=== PATIENT | female | born 1975 | race African-American/Black ===

== ENCOUNTER 2017-08-04 11:45 | Outpatient (CLI) | payer MEDICARE ==
[~2017-08-04] VITALS: Ht 172.7 cm; Wt 96.8 kg
--- NOTE | ~2017-08-04 | HEMODYNAMI ---
PATIENT:JUSTIN WATSON MEDICAL RECORD: [id number] : 75 LOCATION:[facility] ADMISSION DATE: 08/04/17 Generatedon:08/04/201716:26 Patient name: JUSTIN WATSON Patient #: [id number] SSN: : 1975 Date of study: 08/04/2017 Page: Of Hemodynamic Procedure Report Patient Data Patient Demographics Procedure consent was obtained First Name: JUSTIN Gender: Female Last Name: SHIRLEY : 1975 Middle Initial: LELO Age: 41 year(s) Patient #: [id number] Race: Black Additional ID: [id number] Contact details Address: [address] [place] [address] [address] State: [place] City: [place] Zip code: [address] Admission Admission Data Admission Date: 08/04/2017 Admission Time: 11:45 Weight (lbs.): 213 Weight (kg.): 96.62 Procedure Procedure Types Cath Procedure Peripheral Cath Diagnostic Procedure Cath Peripheral Fistula Mechanical Thrombectomy Procedure Description Procedure Date Procedure Date: 08/04/2017 Procedure Start Time: 14:30 Procedure Staff Name Function Michel Barker MD Performing Physician Cindi Marshall RT Monitor Presley Beaver RT Scrub Alexandra John RN Nurse Cindi Marshall RT Respiratory Therapist Procedure Data Cath Procedure Fluoroscopy Diagnostic fluoroscopy Total fluoroscopy Time: time: 29.5 min 29.5 min Diagnostic fluoroscopy Total fluoroscopy dose: 560 dose: 560 mGy mGy Contrast Material Contrast Material Type Amount (ml) Isovue 300 170 Procedure Medications Medication Administration Route Dosage Lidocaine 1% added to field 20 Oxygen NC 3 l/min Heparin Flush Bag added to field 2 bags (1000units/500ml NS) Fentanyl I.V. 50 mcg Versed I.V. 1 mg Fentanyl I.V. 50 mcg Versed I.V. 1 mg Heparin Bolus I.V. 5000 units Versed I.V. 1 mg Fentanyl I.V. 50 mcg Versed I.V. 1 mg Fentanyl I.V. 50 mcg Hemodynamics Rest Heart Rate: 83 (bpm) Snapshots Pre Cath Intra NCS Post Cath Vital Signs Time Heart Resp SPO2 etCO2 NIBP (mmHg) Rhythm Pain Sedation Rate (ipm) (%) (mmHg) Status Level (bpm) 14:08:37 102 20 99 4.5 135/98(113) NSR 0 (11) 10(A) , No pain 14:12:55 58 17 98 5.2 133/101(114) NSR 0 (11) 10(A) , No pain 14:17:12 89 14 100 10.5 127/95(113) NSR 0 (11) 10(A) , No pain 14:21:25 83 14 85 12 129/105(112) NSR 0 (11) 10(A) , No pain 14:25:37 66 15 93 12.8 123/102(114) NSR 0 (11) 10(A) , No pain 14:29:47 94 18 98 5.2 136/108(125) NSR 0 (11) 10(A) , No pain 14:34:44 68 19 98 9.8 137/103(118) NSR 0 (11) 10(A) , No pain 14:39:00 94 11 97 8.2 134/104(118) NSR 0 (11) 10(A) , No pain 14:43:16 84 10 96 9 134/98(117) NSR 0 (11) 10(A) , No pain 14:47:33 94 24 92 3 134/100(120) NSR 0 (11) 10(A) , No pain 14:51:48 95 10 92 9 134/99(114) NSR 0 (11) 10(A) , No pain 14:56:02 96 12 95 9.7 137/103(113) NSR 0 (11) 10(A) , No pain 15:00:18 92 13 97 9.7 137/102(125) NSR 0 (11) 10(A) , No pain 15:04:34 95 25 97 11.3 138/104(120) NSR 0 (11) 10(A) , No pain 15:08:50 91 14 98 15 126/99(112) NSR 0 (11) 10(A) , No pain 15:13:02 93 18 96 13.5 122/99(110) NSR 0 (11) 10(A) , No pain 15:17:12 94 34 95 13.5 134/107(120) NSR 0 (11) 10(A) , No pain 15:21:28 93 18 94 14.3 135/100(115) NSR 0 (11) 10(A) , No pain 15:25:44 90 14 93 16.5 134/99(116) NSR 0 (11) 10(A) , No pain 15:30:00 92 15 94 13.5 134/96(110) NSR 0 (11) 10(A) , No pain 15:34:17 92 7 95 15 139/104(121) NSR 0 (11) 10(A) , No pain 15:39:15 78 20 94 11.3 136/104(115) NSR 0 (11) 10(A) , No pain 15:43:31 92 23 92 11.3 134/102(113) NSR 0 (11) 10(A) , No pain 15:47:48 91 21 95 11.3 134/101(116) NSR 0 (11) 10(A) , No pain 15:52:03 93 23 95 15 142/107(119) NSR 0 (11) 10(A) , No pain 15:56:22 92 17 95 22.6 138/103(119) NSR 0 (11) 10(A) , No pain 16:01:21 84 26 96 1.5 Measuring NSR 0 (11) 10(A) , No pain 16:02:34 93 12 96 140/110(130) NSR 0 (11) 10(A) , No pain 16:07:29 94 20 92 0 142/106(124) NSR 0 (11) 10(A) , No pain 16:11:49 78 14 90 0 142/110(124) NSR 0 (11) 10(A) , No pain 16:16:07 94 17 96 137/106(119) NSR 0 (11) 10(A) , No pain 16:20:26 94 96 135/103(118) NSR 0 (11) 10(A) , No pain 16:25:25 93 11 92 Measuring NSR 0 (11) 10(A) , No pain Medications Time Medication Route Dose Verified Delivered Reason Notes Effe ctiveness by by 14:09:11 Lidocaine 1% added 20ml Alexandra Michel for local to vial Alvaro Barker MD anesthetic field RN 14:09:26 Oxygen NC 3 Alexandra Alexandra l/min Alvaro John RN RN 14:09:48 Heparin Flush added 2 Alexandra Michel used for Bag to bags Alvaro Barker MD procedure (1000units/500ml field RN NS) 14:31:37 Fentanyl I.V. 50 Michel Alexandra for mcg Alvaro Barker RN sedation 14:31:48 Versed I.V. 1 mg Michel Alexandra for Alvaro Barker RN sedation 14:40:10 Fentanyl I.V. 50 Michel Alexandra for mcg Alvaro Barker RN sedation 14:40:22 Versed I.V. 1 mg Michel Alexandra for Alvaro Barker RN sedation 14:50:08 Heparin Bolus I.V. 5000 Michel Alexandra units Alvaro Barker RN, MD 15:08:00 Versed I.V. 1 mg Michel Alexandra for Alvaro Barker RN sedation 15:08:08 Fentanyl I.V. 50 Michel Alexandra for mcg Alvaro Barker RN sedation 15:26:29 Versed I.V. 1 mg Michel Alexandra for Alvaro Barker RN sedation 15:26:37 Fentanyl I.V. 50 Michel Alexandra for mcg lAvaro Barker RN sedation Procedure Log Time Note 13:35:50 Patient Weight : 213 lbs 13:36:37 Use device set IR Diagnostic 13:36:39 Sterile Angiographic Pack opened to sterile field. 13:36:40 Bag Decanter (2002S) opened to sterile field. 13:37:03 DOC .035 wire (C80735) opened to sterile field. 13:37:04 Micropuncture VSI 4FR kit opened to sterile field. 13:37:05 St Waylon 6FR 5cm sheath opened to sterile field. 13:37:05 St Waylon 6FR 5cm sheath opened to sterile field. 13:37:21 INFLATOR BasixTOUCH (NO5725) opened to sterile field. 14:01:01 Time tracking: Regular hours 14:01:32 Plan of Care:Hemodynamics will remain stable., Cardiac rhythm will remain stable., Comfort level will be maintained., Respiratory function will remain adequate., Patient/ family verbilizes understanding of procedure., Procedure tolerated without complication., Recovers from procedure without complications.. 14:01:44 Patient received from Outpatients to IR Alert and oriented. Tansferred to table in Supine position. 14:01:48 Correct patient and procedure confirmed by team. 14:01:51 Signed procedure consent form obtained from patient. 14:02:07 H&P Date Dictated: 08/04/2017 Within 30 days and on chart.. 14:02:11 Family in waiting room. 14:02:15 Patient NPO since Midnight. 14:02:19 - 14:07:19 ECG and BP/O2 sat monitors applied to patient. 14:07:20 Vital chart was started 14:07:23 Baseline sample Acquired. 14:07:24 Full Disclosure recording started 14:07:25 - 14:07:30 Pre-procedure instructions explained to patient. 14:07:31 Pre-op teaching completed and patient verbalized understanding. 14:07:36 Is the patient allergic to Iodine/contrast media? No. 14:07:39 Is patient on blood thinner?Yes 14:07:41 Patient diabetic? Yes. 14:07:46 If diabetic: On Metformin? No 14:07:48 - 14:07:50 ----Pre-sedation anethsthesia assessment.---- 14:07:54 Previous problem with sedation/anesthesia? No ? 14:07:57 Snore? Yes 14:07:59 Sleep apnea? No 14:08:06 Deviated septum? No 14:08:11 Opens mouth fully? Yes 14:08:16 Sticks out tongue? Yes 14:08:20 Airway obstruction? No ? 14:08:27 Dentures? Yes out 14:08:41 IV patent on arrival in left forearm with 0.9% NaCl at [facility]. 14:08:48 Right Arm area was prepped with chlora-prep and draped in sterile fashion 14:: Lidocaine 1% 20ml vial added to field was administered by Michel Barker MD; for local anesthetic; 14:: Oxygen 3 l/min NC was administered by Alexandra John RN; ; ::48 Heparin Flush Bag (1000units/500ml NS) 2 bags added to field was administered by Michel Barker MD; used for procedure; 14::52 - 14::16 Physician arrived 14:28: --------ALL STOP TIME OUT------ 14:28:11 Final Timeout: patient, procedure, and site verified with staff and physician. All members of the team are in agreement. 14::16 Sedation plan: IV Moderate Sedation Medication:Versed, Fentanyl 14:28:22 Procedure started. 14:30:11 Local anesthetic to right arm with Lidocaine 1% by Michel Barker MD.INITIAL ACCESS ONLY 14:30:13 Venous access obtained using ultrasound guidance. ::37 Fentanyl 50 mcg I.V. was administered by Alexandra John RN; for sedation ; :48 Versed 1 mg I.V. was administered by Alexandra John RN; for sedation; 14:37:07 TORQUE DEVICE PLASTIC .038 ( TD01) opened to sterile field. 14:37:07 GLIDE WIRE ANGLE 180cm (FR3562) opened to sterile field. 14:37:08 Micropuncture VSI 4FR kit opened to sterile field. 14:37:09 GLIDE CATHETER 5FR ANGLED 65cm (CG507) opened to sterile field. 14:40:10 Fentanyl 50 mcg I.V. was administered by Alexandra John RN; for sedation ; 14:40:22 Versed 1 mg I.V. was administered by Alexandra John RN; for sedation; 14:43:34 ROADRUNNER .035 145 glide wire (M94105) opened to sterile field. 14:47:57 PRITCHARD 260 wire (C46347) opened to sterile field. 14:50:08 Heparin Bolus 5000 units I.V. was administered by Alexandra John RN; ; 14:50:42 Inflation number: 1 A POWERFLEX PRO 4.0 X 100 X 135 balloon ([id number]) was prepped and advanced across the Undefined lesion 1 on undefined graft 1, then inflated 14:53:30 Inflation number: 1 A POWERFLEX PRO 6.0 x 100 x 135cm balloon ([id number] ) was prepped and advanced across the Undefined1, then inflated 14:59:53 Inflation number: 2 A POWERFLEX PRO 8.0 x 40 x 80cm balloon ([id number]) was prepped and advanced across the Undefined1, then inflated . 15:08:00 Versed 1 mg I.V. was administered by Alexandra John RN; for sedation; 15:08:08 Fentanyl 50 mcg I.V. was administered by Alexandra John RN; for sedation ; 15:10:07 Inflation number: 3 A POWERFLEX PRO 10.0 x 40 x 80cm balloon ([id number]) was prepped and advanced across the Undefined1, then inflated . 15:26:29 Versed 1 mg I.V. was administered by Alexandra John RN; for sedation; 15:26:37 Fentanyl 50 mcg I.V. was administered by Alexandra John RN; for sedation ; 15:26:51 SMART 10 X 60 X 120 stent ([id number]) was deployed across Undefined1 . 15:31:42 Inflation number: 4 A POWERFLEX PRO 6.0 x 100 x 135cm balloon ([id number] ) was prepped and advanced across the Undefined1, then inflated 16:00:11 Cordis 5Fr BRITE TIP 11cm sheath opened to sterile field. 16:13:39 Procedure ended.(Physican Out) 16:13:58 Fluoroscopy time 29.50 minutes. 16:14:02 Fluoroscopy dose: 560 mGy 16:14:02 Flurop Dose total: 560 16:16:19 dr. barker asked for activase on field, 10mg of activase placed on field , due to arterial occlussion activase was not used.. 16:21:16 Contrast amount:Isovue 300 170ml. 16:21:21 Procedure and supply charges have been captured, reviewed, submitted an d are correct. 16:26:40 Vital chart was stopped Intervention Summary Intervention Notes Time ActionType Lesion and Equipment Action# Pressure Duration Attributes Used 14:50:42 Inflate Undefined POWERFLEX 1 0 00:00 balloon lesion 1 on PRO 4.0 X undefined 100 X 135 graft 1 balloon ([id number]) 14:53:30 Inflate Undefined1 POWERFLEX 1 0 00:00 balloon PRO 6.0 x 100 x 135cm balloon ([id number]) 14:59:53 Inflate Undefined1 POWERFLEX 2 0 00:00 balloon PRO 8.0 x 40 x 80cm balloon ([id number]) 15:10:07 Inflate Undefined1 POWERFLEX 3 0 00:00 balloon PRO 10.0 x 40 x 80cm balloon ([id number]) 15:26:51 Deploy self Undefined1 SMART 10 X 1 expanding 60 X 120 stent stent ([id number]) 15:31:42 Inflate Undefined1 POWERFLEX 4 0 00:00 balloon PRO 6.0 x 100 x 135cm balloon ([id number]) Device Usage Item Name Manufacture Quantity Catalog Hospital Part Current Minima l Lot# / Number Charge Number Stock Stock Serial# Code Sterile Cardinal 1 [id number] 403328 5 Angiographic Health Pack Bag Decanter Microtek 1 483757 83493 053038 5 () Medical Inc. DOC .035 wire Cook Medical 1 [id number] 517697 831016 5 [id number] ([id number]) Micropuncture VSI VASCULAR 2 7266V 044143 805772 [address] Waylon [address] [employer] Waylon 2 029561 046229 440879 5 [id number] 5cm sheath [id number] INFLATOR Merit 1 [id number] 378307 296594 346035 5 BasMobile Bridge Medical (HY9846) TORQUE DEVICE [place] 1 TD01 815790 164335 938522 5 PLASTIC .038 Scientific ( TD01) GLIDE WIRE Terumo 1 AT8659 040786 848582 783432 5 ANGLE 180cm (AK5298) GLIDE Terumo 1 CG507 368960 733645 5 CATHETER 5FR ANGLED 65cm (CG507) ROADRUNNER [facility] 1 Q49539 305537 958685 899454 5 8273552 .035 145 glide wire (Y77812) PRITCHARD 260 [employer] 1 Q04548 103271 467655 5 [id number] wire ([id number]) POWERFLEX PRO Cardinal 1 [id number] 041177 858125 5 4.0 X 100 X Health 135 balloon ([id number]) POWERFLEX PRO Cardinal 2 [id number] 088386 318694 549579 5 6.0 x 100 x Health 135cm balloon ([id number]) POWERFLEX PRO Cardinal 1 [id number] 146037 631155 068912 5 8.0 x 40 x Health 80cm balloon ([id number]) POWERFLEX PRO Cardinal 1 [id number] 324207 593887 841210 5 10.0 x 40 x Health 80cm balloon ([id number]) SMART 10 X 60 Cardinal 1 [id number] 177452 185488 5 [id number] X 120 stent Health ([id number]) Cordis 5Fr Cardinal 1 [id number] 601463 408176 5 BRITE TIP Health 11cm sheath Signature Audit [place] Stage Time Signature Unsigned Intra-Procedure 08/04/2017 Cindi Marshall 4:26:36 PM RT(R) Signatures Monitor : Cindi Marshall RT Signature : Date : Time : [facility] [address] [place] [address]
[~2017-08-04 11:45] MED LIST: COUMADIN5 MG PO; HUMALOG 30100 UNITS/; HYDROCODONE-APA1 TAB PO; LANTUS; LANTUS INSULIN10 ML SC; LIPITOR80 MG PO; NEPHRO-VITE RX1 TAB PO; NORCO 5/325 TAB1 TA1 PO; NORVASC10 MG PO; PHOSLO667 MG PO; PLAVIX75 MG PO; PRINIVIL20 MG PO
[2017-08-04 12:55] VITALS: BP 134/88; Ht 172.7 cm; Wt 96.8 kg
[2017-08-04 13:45] LABS: BASOPHILS 0.5 % (0-2); EOSINOPHILS 6.4 % (0-7); HEMATOCRIT 33.4 % (36.0-48.0); HEMOGLOBIN 11.5 g/dL (12-16); IMMATURE GRANULOCYTES 0.5 % (0-5); LYMPHOCYTES 22.7 % (15-50); MCH 30.2 pg (26.0-34.0); MCHC 34.4 g/dL (31.0-37.0); MCV 87.7 fL (80.0-100.0); NEUTROPHILS 65.9 % (40-80); RBC 3.81 10x6/uL (4.00-5.40); RDW 18.4 % (11.5-14.5); WBC 6.5 10x3/uL (4.8-10.8)
[2017-08-04 13:46] LABS: PLATELET COUNT 247 10x3/uL (130-400)
[2017-08-04 13:53] LABS: ANION GAP 17.6 mmol/L (8-16); CARBON DIOXIDE 24.1 mmol/L (21.0-32.0); CREATININE - SERUM 5.3 mg/dL (0.6-1.3); POTASSIUM - SERUM 3.7 mmol/L (3.5-5.1)
[2017-08-04 13:55] LABS: APTT 31.8 SECONDS (22.8-39.4); INR 1.09 (0.85-1.17); PROTIME 13.7 SECONDS (11.6-15.0)
== END 2017-08-04 18:20 | disposition home or self-care (01) ==
LOC: D.OPS 11:45 → D.RAD 13:00 → D.OPS 18:20
PROVIDERS: Internal Medicine
DX: T82.868A Thrombosis due to vascular prosthetic devices, implants and grafts, initial encounter (principal); N18.6 End stage renal disease; Z99.2 Dependence on renal dialysis; Z01.812 Encounter for preprocedural laboratory examination

== ENCOUNTER 2017-09-07 06:19 | Day surgery (SDC) | payer MEDICARE ==
[2017-08-04 12:55] VITALS: Wt 96.6 kg
--- NOTE | ~2017-09-07 | OP ---
PATIENT NAME: JUSTIN REYES MEDICAL RECORD: [id number] :75 LOCATION:D.OPS ADMISSION DATE: SURGEON: JASS STRATTON MD DATE OF OPERATION: 09/07/2017 REFERRED BY: Dr. Draper. PREOPERATIVE DIAGNOSES: End-stage renal disease and dependence on hemodialysis and multiple failed dialysis accesses, now catheter dependent. Also, diabetes with associated severe peripheral arterial disease and status post bilateral lower extremity amputations. SURGEON: Jass Stratton MD ANESTHESIA: Left upper extremity regional nerve block plus general anesthesia via LMA per BIOLOGY MANAGER. PREOPERATIVE NOTE: Ms. Reyes is an unfortunate obese, diabetic 41-year-old -[place] female with severe peripheral arterial disease and end-stage renal disease, on dialysis. She has had several failed dialysis accesses. She has not had an access in the left upper extremity. Her present catheter is in the left internal jugular position. She is brought to the operating room today in order to perform a left upper extremity venogram and probably implant an AV graft in her left arm. DESCRIPTION OF PROCEDURE: Under anesthesia in supine position, the patient was prepped and draped in sterile manner. First I examined her with ultrasound and noted the positions of the axillary, brachial artery and axillary and basilic veins. I then ultrasounded the basilic vein just below the antecubital level. I accessed it with micropuncture technique and performed a venogram. The veins in the left arm were small, but patent. The basilic vein actually looked potentially good for a translocated basilic vein AV fistula. The axillary vein was small, but patent all the way through the chest to the right atrium. An excellent superior vena cavogram was obtained during this procedure also. Seeing that the axillary vein was patent, I went ahead and made a longitudinal incision on the inner aspect of the arm and exposed the proximal brachial artery and distal axillary artery and the axillary vein and basilic vein. All of the structures were very small and the axillary vein deeper in the axilla would have possibly been useful, but the incision that I had made did not allow optimum exposure. I was considering placing a hybrid graft to facilitate access through the axillary vein, but I was concerned that the artery was small and atherosclerotic and might not support a graft. I then made an incision distally and exposed the distal brachial artery just above the antecubital space where it was also small and atherosclerotic, but I thought might support at least initially a fistula. I exposed the basilic vein and mobilized it, ligated and divided it distally, bevelled it, flushed it with heparinized saline and distended it with hydrostatic pressure. The artery was occluded and opened, and flushed proximally and distally with heparinized saline and I then performed an end-to-side end of vein to side of artery anastomosis with running 7-0 Prolene. When completed and the occluding loops and clamps were released, excellent flow developed immediately in the new fistula. The wound was subsequently closed without the use of a drain with interrupted 3-0 Vicryl and running intracuticular 4-0 Monocryl. The axillary wound was explored and irrigated and hemostasis being adequate, it also was closed in the same manner. The incisions OPERATIVE REPORT [id number] JUSTIN REYES were sealed and closed further with Dermabond glue and dressed with Maxorb Ag, Tegaderm and Cavilon skin prep. She was awakened and in stable condition taken to the recovery room. I will let her go home today and plan to see her back in my office in 2 weeks. My thoughts are that if this fistula remains patent and we can show that the basilic vein is dilating on ultrasound, then it may be that this can be converted to a translocated basilic vein fistula and end up with a good access. Unfortunately, this will take considerably longer than a graft might and she is at this time catheter dependent. Another option would be that the fistula I created today might result in dilation of the axillary vein and actually in dilation of the axillary artery and brachial artery as well, after which it might be feasible and safer to implant a PTFE loop graft proximal brachial artery to axillary vein. Probably, I still would use a hybrid graft, but I would make a transverse incision higher in the axilla and plan to have handy 12 and 14-Thai peel-away introducers for insertion of the hybrid graft. Blood loss during the procedure was about 5 cc and was certainly unreplaced. No drain was used. No specimen was submitted for histopathology. All sponges, instruments, and needles were accounted for. TRANSINT:[id number] Voice Confirmation ID: [id number] DOCUMENT ID: [id number] JASS STRATTON MD CC: BEULAH DRAPER MD [id number] DICTATION DATE: 09/07/17 1316 CYBER SOFTWARE ENGINEER: 09/07/[address] [facility] [address] [facility]
[2017-09-07 07:57] LABS: BASOPHILS 0.3 % (0-2); EOSINOPHILS 8.3 % (0-7); HEMATOCRIT 34.1 % (36.0-48.0); HEMOGLOBIN 11.8 g/dL (12-16); IMMATURE GRANULOCYTES 0.3 % (0-5); LYMPHOCYTES 21.2 % (15-50); MCH 30.5 pg (26.0-34.0); MCHC 34.6 g/dL (31.0-37.0); MCV 88.1 fL (80.0-100.0); MEAN PLATELET VOLUME 11.7 fL (7.4-10.4); MONOCYTES 5.7 % (2-11); NEUTROPHILS 64.2 % (40-80); PLATELET COUNT 201 10x3/uL (130-400); RBC 3.87 10x6/uL (4.00-5.40); RDW 17.3 % (11.5-14.5); WBC 6.1 10x3/uL (4.8-10.8)
[2017-09-07 08:05] LABS: APTT 30.2 SECONDS (22.8-39.4); INR 1.27 (0.85-1.17); PROTIME 15.4 SECONDS (11.6-15.0)
[2017-09-07 08:07] LABS: ANION GAP 18.3 mmol/L (8-16); CALCIUM 8.2 mg/dL (8.5-10.1); CARBON DIOXIDE 21.2 mmol/L (21.0-32.0); CREATININE - SERUM 8.4 mg/dL (0.6-1.3); POTASSIUM - SERUM 3.5 mmol/L (3.5-5.1)
[2017-09-07] MEDS ORDERED: HYDROCODON-ACE1 EAC7 PO (13:03)
== END 2017-09-07 15:49 | disposition home or self-care (01) ==
LOC: D.OPS 06:19
PROVIDERS: Internal Medicine Nephrology
DX: E11.22 Type 2 diabetes mellitus with diabetic chronic kidney disease (principal); N18.6 End stage renal disease; Z99.2 Dependence on renal dialysis; E11.51 Type 2 diabetes mellitus with diabetic peripheral angiopathy without gangrene; Z89.612 Acquired absence of left leg above knee; Z89.611 Acquired absence of right leg above knee; Z01.812 Encounter for preprocedural laboratory examination; E66.9 Obesity, unspecified; Z68.32 Body mass index [BMI] 32.0-32.9, adult

== ENCOUNTER 2017-10-26 07:33 | Outpatient (CLI) | payer MEDICARE ==
[~2017-10-26] VITALS: Ht 175.3 cm; Wt 95.3 kg
[~2017-10-26 07:33] MED LIST changes: +HYDROCODON-ACE1 EAC7 PO
[2017-10-26] MEDS ORDERED: LANTUS INSULIN10 ML SC (08:25)
[2017-10-26] MEDS ORDERED: BAYER CHEWABLE81 MG PO (08:28)
[2017-10-26] MEDS ORDERED: ULTRAM50 MG PO (08:28)
[2017-10-26 08:29] LABS: APTT 31.3 SECONDS (22.8-39.4); INR 1.47 (0.85-1.17); PROTIME 17.3 SECONDS (11.6-15.0)
[2017-10-26 08:34] LABS: ANION GAP 24.1 mmol/L (8-16); CALCIUM 8.6 mg/dL (8.5-10.1); CARBON DIOXIDE 19.9 mmol/L (21.0-32.0); CREATININE - SERUM 9.7 mg/dL (0.6-1.3)
[2017-10-26 08:38] VITALS: Ht 175.3 cm; Wt 95.3 kg
[2017-10-26 08:42] LABS: BASOPHILS 0.2 % (0-2); EOSINOPHILS 2.2 % (0-7); HEMATOCRIT 40.8 % (36.0-48.0); HEMOGLOBIN 14.6 g/dL (12-16); IMMATURE GRANULOCYTES 0.3 % (0-5); LYMPHOCYTES 28.5 % (15-50); MCH 31.5 pg (26.0-34.0); MCHC 35.8 g/dL (31.0-37.0); MCV 87.9 fL (80.0-100.0); MEAN PLATELET VOLUME 12.2 fL (7.4-10.4); MONOCYTES 6.3 % (2-11); NEUTROPHILS 62.5 % (40-80); PLATELET COUNT 168 10x3/uL (130-400); RBC 4.64 10x6/uL (4.00-5.40); RDW 16.6 % (11.5-14.5); WBC 5.8 10x3/uL (4.8-10.8)
== END 2017-10-26 12:37 | disposition home or self-care (01) ==
LOC: D.OPS 07:33 → EDSTATUS 11:00 → D.OPS 11:00
PROVIDERS: Surgery
DX: Z53.29 Procedure and treatment not carried out because of patient's decision for other reasons (principal); Z01.810 Encounter for preprocedural cardiovascular examination; Z01.811 Encounter for preprocedural respiratory examination; Z01.812 Encounter for preprocedural laboratory examination

== ENCOUNTER 2017-11-16 06:00 | Day surgery (SDC) | payer MEDICARE ==
[2017-11-15 12:39] LABS: BASOPHILS 0.5 % (0-2); EOSINOPHILS 3.6 % (0-7); HEMATOCRIT 40.5 % (36.0-48.0); HEMOGLOBIN 14.1 g/dL (12-16); IMMATURE GRANULOCYTES 0.2 % (0-5); MCH 30.4 pg (26.0-34.0); MCHC 34.8 g/dL (31.0-37.0); MCV 87.3 fL (80.0-100.0); MEAN PLATELET VOLUME 11.8 fL (7.4-10.4); MONOCYTES 5.2 % (2-11); NEUTROPHILS 65.5 % (40-80); PLATELET COUNT 178 10x3/uL (130-400); RBC 4.64 10x6/uL (4.00-5.40); RDW 17.3 % (11.5-14.5); WBC 6.2 10x3/uL (4.8-10.8)
[2017-11-15 12:57] LABS: INR 1.24 (0.85-1.17); PROTIME 15.2 SECONDS (11.6-15.0)
[2017-11-15 12:58] LABS: APTT 32.6 SECONDS (22.8-39.4)
[2017-11-15 13:02] LABS: ANION GAP 18.4 mmol/L (8-16); CALCIUM 7.8 mg/dL (8.5-10.1); CARBON DIOXIDE 23.3 mmol/L (21.0-32.0); CREATININE - SERUM 6.8 mg/dL (0.6-1.3); POTASSIUM - SERUM 3.7 mmol/L (3.5-5.1)
[~2017-11-16] VITALS: Ht 175.3 cm; Wt 101.7 kg
--- NOTE | ~2017-11-16 | OP ---
PATIENT NAME: JUSTIN REYES MEDICAL RECORD: [id number] :75 LOCATION:D.M2 D.2140 ADMISSION DATE: SURGEON: JASS STRATTON MD DATE OF OPERATION: 11/16/2017 REFERRED BY: Abraham Costa MD PREOPERATIVE DIAGNOSES: End-stage renal disease and dependence on hemodialysis with failed prior dialysis access procedures. Additional diagnoses: Diabetes, hypertension, peripheral arterial disease - atherosclerosis, and history of cardiac dysrhythmias with PVCs. POSTOPERATIVE DIAGNOSES: End-stage renal disease and dependence on hemodialysis with failed prior dialysis access procedures. Additional diagnoses: Diabetes, hypertension, peripheral arterial disease - atherosclerosis, and history of cardiac dysrhythmias with PVCs. OPERATION PERFORMED: Planned staged creation of a left arm brachial artery to translocated basilic vein arterial venous fistula. SURGEON: Jass Stratton MD ANESTHESIA: General with LMA per ZENOBIA PREOPERATIVE NOTE: Ms. Reyes is about 2 months past left brachial artery to basilic vein Niko type AV fistula creation, that was done with the intent of returning her to the operating room in 2-4 weeks for a second stage procedure for creation of a translocated basilic vein fistula. The patient was unable to schedule her surgery until this week and she is brought in as an outpatient for that. On physical examination, the pulsation and thrill over her established Niko fistula is absent and I fear the fistula may have thrombosed. We will go on to the operating room. We will plan to explore the fistula, do a fistulogram or venogram if necessary and indicated procedures. DESCRIPTION OF PROCEDURE: Under general anesthesia administered by STREET PHOTOGRAPHER via LMA, the patient was prepped and draped in sterile manner. I examined her first with Duplex ultrasound and color flow technique and demonstrated pulsatile continuous flow within her basilic vein and a patent, though stenotic arterial anastomosis to the brachial artery in the antecubital space and what appeared to be a juxta-anastomotic stricture near the arterial anastomosis. Otherwise, the vein appeared to be a centimeter or more in diameter along its course from the antecubital space to the axilla and probably very suitable for the intended primary fistula. I then made a long incision on the arm and exposed and mobilized the vein from axilla to antecubital arterial anastomosis. The vein around to the arterial anastomosis was more inflamed and contracted consistent with the JA stenosis and arterial stenosis and also as seen the last operation, there was atherosclerotic change within the rather small brachial artery. I mobilized the brachial artery above that level and controlled it with Silastic loops planning to just go ahead and do another arterial anastomosis. The brachial artery was not much larger and it was partially calcified involved by calcific atherosclerotic change. I treated the vein with topical papaverine and then ligated it close to the arterial anastomosis. This was done with 2-0 Vicryl. The vein was then transected and bevelled. It was flushed with OPERATIVE REPORT [id number] JUSTIN REYES heparinized saline and treated again with topical papaverine. I made an anterior subcutaneous tunnel as close to the skin as possible using a combination of Impra tunneler and Satish tunneling instruments. The vein was placed in that tunnel and then anastomosed end-to-side to the brachial artery. The artery was opened for a distance of about 8 mm and flushed proximally and distally with heparinized saline and an end-to-side anastomosis performed with running 7-0 Prolene. Upon its completion and release of the occluding clamps and loops, excellent flow was established within the fistula with a palpable thrill and pulsation and good pulsatile continuous Doppler flow. Flow was maintained in the brachial artery distally and in the radial artery at the wrist by Doppler. The patient was mildly hypotensive through the procedure and did not respond well to pressors. With lightning of anesthesia, her blood pressure did come up into the 120 range and she had a much better palpable thrill and pulsation within the new fistula. The patient had continuous oozing and bleeding from the wound margins and I was reluctant to treat her with DDAVP with her hypotensive. The wound was irrigated with saline and electrocautery used for hemostasis in addition to a few Vicryl ties. I placed a 1 cm diameter flat fluted closed suction drain in the wound and brought it out distally through a separate stab incision and it was attached to suction. The wound was closed over it approximating the subcutaneous tissues with interrupted inverted 3-0 Vicryl and the skin was closed with running intracuticular 4-0 Monocryl and Dermabond glue. The skin incision was additionally closed in a couple of spots with some interrupted simple 4-0 Prolene. It was then dressed with Maxorb Ag, Tegaderm and Cavilon skin prep. The drain exit site was dressed with a BioDisc and dressed with Tegaderm and sterile dressings additionally over that to secure the tubing and the drain connected to a suction reservoir. A new standard central venous dressing with a chlorhexidine disk was applied to her left IJ TDC and awakened. She was taken to the recovery room where she arrived with a good pulsation and thrill over her easily palpable fistula. Blood loss during the operation, I estimated at maybe 100-150 cc. None was replaced intraoperatively. All sponges, instruments and needles were accounted for. One drain was used as I described above. No surgical specimen was submitted for histopathology. PLAN: I believe the patient should be monitored in the hospital at least overnight due to her history of cardiac dysrhythmias and her relative hypotension throughout the procedure and her apparent coagulopathy. Hopefully, she will have no problems and she will be able to go home tomorrow after having her drain removed and followup with me in my office next week. I will plan to continue her on all of her same medications and allow her to resume activities and her usual renal ADA diet as tolerated. TRANSINT:[id number] Voice Confirmation ID: [id number] DOCUMENT ID: [id number] OPERATIVE REPORT [id number] JUSTIN REYES JAMES MD at 2009 CC: ABRAHAM COSTA [id number] DICTATION DATE: 11/16/17 1237 RUSH SEATER: 11/16/17 1526 [facility] [address] [place] [address]
[~2017-11-16 06:00] MED LIST changes: +BAYER CHEWABLE81 MG PO; +ULTRAM50 MG PO
[2017-11-16 06:29] VITALS: BMI 31.2
[2017-11-16 16:38] VITALS: BP 92/56; BMI 33.2
[2017-11-16 19:59] VITALS: BP 100/52
[2017-11-17] VITALS: BP 99/68
[2017-11-17 04:00] VITALS: BP 126/61
[2017-11-17 08:35] VITALS: BP 136/67
[2017-11-17 13:01] VITALS: BP 135/78
[2017-11-17 13:54] VITALS: Ht 175.3 cm; Wt 101.7 kg
[2017-11-17 18:39] VITALS: BP 105/61
== END 2017-11-17 19:31 | disposition home or self-care (01) ==
LOC: D.M2 06:00 → D.OPS 06:00 → D.PAN 08:00 → D.M2 14:48 → D.OPS 11-17 19:31
PROVIDERS: Surgery
DX: E11.22 Type 2 diabetes mellitus with diabetic chronic kidney disease (principal); I12.0 Hypertensive chronic kidney disease with stage 5 chronic kidney disease or end stage renal disease; N18.6 End stage renal disease; Z99.2 Dependence on renal dialysis; I73.9 Peripheral vascular disease, unspecified; I49.3 Ventricular premature depolarization; Z01.812 Encounter for preprocedural laboratory examination